=== PATIENT | male | born 1940 | race Caucasian/White ===

== ENCOUNTER 2016-05-29 16:15 | Inpatient (IN) | payer OTHER ==
[2016-05-29 18:14] VITALS: BMI 25.2
--- NOTE | 2016-05-29 20:23 | HP ---
COWS - Scale Resting Pulse: 1= [place] 81-100 Sweatin=Flushed/Facial Moisture Restless Observation: 1= Difficult to Sit Still Pupil Size: 0= Normal to Room Light Bone or Joint Aches: 2= Severe Diffuse Aches Runny Nose/ Eye Tearin= Runny Nose/Eyes GI Upset > 30mins: 1= Stomach Cramp Tremor Observation: 1= Tremor [place], Not Seen Yawning Observation: 2= >3x During Session Anxiety or Irritability: 2=Irritable/Anxious Goose Flesh Skin: 0=Smooth Skin COWS Score: 14 CIWA Score - CIWA Score Nausea/Vomitin-Mild Nausea/No Vomiting Muscle Tremors: 3 Anxiety: 3 Agitation: 2 Paroxysmal Sweats: 3 Orientation: 1-Uncertain about Date Tacttile Disturbances: 1-Very Mild Itch/Numbness Auditory Disturbances: 0-None Visual Disturbances: 0-None Headache: 2-Mild CIWA-Ar Total Score: 16 Admission ROS S - HPI Chief Complaint: WITHDRAWAL SYMPTOMS Allergies/Adverse Reactions: Allergies Allergy/AdvReac Type Severity Reaction Status Date / Time No Known Allergies Allergy Verified 04/21/15 15:08 History of Present Illness: 75 Y.O. MAN WITH AN EXTENSIVE HISTORY OF DRUG AND ALCOHOL DEPENDENCE IS SEEKING DETOX. HE REPORTS HAVING A HISTORY OF 3-4 YEARS OF SOBRIETY. PT. COMPLETED DETOX HERE TWICE IN 2016. Exam Limitations: No Limitations - Ebola screening Have you traveled outside of the country in the last 21 days: No Have you had contact with anyone from an Ebola affected area: No Have you been sick,other than usual withdrawal symptoms: No Do you have a fever: No - Review of Systems Constitutional: Night Sweats, Changes in sleep EENT: reports: Blurred Vision, Ear Pain Respiratory: reports: SOB with Exertion Cardiac: reports: No Symptoms Reported GI: reports: Constipated : reports: Other ( HESISTANCY) Musculoskeletal: reports: Back Pain Integumentary: reports: No Symptoms Reported Neuro: reports: Headache, Numbness Endocrine: reports: No Symptoms Reported Hematology: reports: No Symptoms Reported Psychiatric: reports: Judgement Intact, Anxious Other Systems: Reviewed and Negative Patient History - Patient Medical History Hx Anemia: No Hx Asthma: No Hx Chronic Obstructive Pulmonary Disease (COPD): No Hx Cancer: No Hx Cardiac Disorders: No Hx Congestive Heart Failure: No Hx Hypertension: Yes (NOT TAKING MEDS ) Hx Hypercholesterolemia: No Hx Pacemaker: No HX Cerebrovascular Accident: No Hx Seizures: No Hx Dementia: No Hx Diabetes: No Hx Gastrointestinal Disorders: No Hx Liver Disease: No Hx Genitourinary Disorders: No Hx Sexually Transmitted Disorders: No Hx Renal Disease (ESRD): No Hx Thyroid Disease: No Hx Human Immunodeficiency Virus (HIV): No (negative last 05/28) Hx Hepatitis C: Yes Hx Depression: Yes (insomnia) Hx Suicide Attempt: No (denies) Hx Bipolar Disorder: No Hx Schizophrenia: No - Patient Surgical History Past Surgical History: Yes Hx Neurologic Surgery: No Hx Cataract Extraction: No Hx Cardiac Surgery: No Hx Lung Surgery: No Hx Breast Surgery: No Hx Breast Biopsy: No Hx Abdominal Surgery: No Hx Appendectomy: No Hx Cholecystectomy: Yes (20 years ago elo) Hx Genitourinary Surgery: No Hx Section: No Hx Orthopedic Surgery: No Anesthesia Reaction: No - PPD History Previous Implant?: Yes Documented Results: Negative w/proof Implanted On Prior R Admission?: Yes Date: 04/23/15 Results: 0 mm PPD to be Administered?: Yes - Reproductive History Patient is a Female of Child Bearing Age (11 -55 yrs old): No - Smoking Cessation Smoking history: Current every day smoker Have you smoked in the past 12 months: Yes Aproximately how many cigarettes per day: 5 Cigars Per Day: 0 Hx Chewing Tobacco Use: No Initiated information on smoking cessation: Yes 'Breaking Loose' booklet given: 05/29/16 - Substance & Tx. History Hx Alcohol Use: Yes Hx Substance Use: Yes Substance Use Type: Alcohol, Heroin Hx Substance Use Treatment: Yes (DETOX ) - Substances Abused Heroin Route: Inhalation Frequency: Daily Amount used: 8-9 BAGS Age of first use: 22 Date of Last Use: 05/29/16 Alcohol Route: Oral Frequency: Daily Amount used: 1-2 PINTS OF LIQUOR Age of first use: 22 Date of Last Use: 05/29/16 Family Disease History - Family Disease History Family History: Unremarkable Admission Physical Exam BHS - Vital Signs Vital Signs: Vital Signs - 24 hr 05/29/16 18:09 Temperature 98.8 F Pulse Rate 87 Respiratory 18 Rate Blood Pressure 153/77 - Physical General Appearance: Yes: No Apparent Distress, Nourished, Appropriately Dressed , Sweating, Anxious HEENTM: Yes: Hearing grossly Normal, Normal ENT Inspection, Normocephalic, Normal Voice Respiratory: Yes: Chest Non-Tender, Lungs Clear, Normal Breath Sounds, No Respiratory Distress, No Accessory Muscle Use Neck: Yes: No masses,lesions,Nodules, Trachea in good position Breast: Yes: Breast Exam Deferred Cardiology: Yes: Regular Rhythm, Regular Rate, S1, S2 Abdominal: Yes: Normal Bowel Sounds, Non Tender, Flat, Soft Genitourinary: Yes: Hesitency Back: Yes: Normal Inspection Musculoskeletal: Yes: Back pain Extremities: Yes: Normal Capillary Refill, Normal Inspection, Normal Range of Motion Neurological: Yes: Fully Oriented, Alert, Normal Mood/Affect, Normal Response Integumentary: Yes: Normal Color, Dry, Warm Lymphatic: Yes: Within Normal Limits - Diagnostic (1) Alcohol dependence with uncomplicated withdrawal Current Visit: Yes Status: Chronic (2) Opioid dependence with withdrawal Current Visit: Yes Status: Chronic (3) Nicotine dependence Current Visit: Yes Status: Chronic Qualifiers: Nicotine product type: cigarettes Substance use status: uncomplicated Qualified Code(s): F17.210 - Nicotine dependence, cigarettes, uncomplicated Cleared for Admission [facility] - Detox or Rehab [facility] Level of Care: Medically Managed Detox Regimen/Protocol: Methadone/Librium [facility] Breath Alcohol Content Breath Alcohol Content: 0.118 Urine Drug Screen - Results Urine Drug Screen Results: OPI-Opiates, MTD-Methadone, TCA-Tricyclic Antidepress
[2016-05-29] MEDS ORDERED: MENTHOL/PHENOL 1 EACH UD MM PRN (20:40)
[2016-05-29] MEDS ORDERED: chlordiazePOXIDE HCL 25 MG CAPSULE PO PRN (20:40)
[2016-05-29] MEDS ORDERED: guaiFENesin/D-METHORPHAN HB 10 ML UNIT-DOSE CUPS PO PRN (20:40)
[2016-05-29] MEDS ORDERED: ACETAMINOPHEN 325 MG TABLET (FP) PO PRN (20:40)
[2016-05-29] MEDS ORDERED: MAGNESIUM HYDROX 2400MG/30ML ORAL SUSPENSION 30 ML CUP PO PRN (20:40)
[2016-05-29] MEDS ORDERED: IBUPROFEN 400 MG TABLET (FP) PO PRN (20:40)
[2016-05-29] MEDS ORDERED: MAG HYDROX/AL HYDROX/SIMETH 30 ML UNIT-DOSE CUP PO PRN (20:40)
[2016-05-29] MEDS ORDERED: MAGNESIUM CITRATE 300 ML BOTTLE PO PRN (20:40)
[2016-05-29] MEDS ORDERED: LOPERAMIDE HCL 2 MG CAPSULE PO PRN (20:40)
[2016-05-29] MEDS ORDERED: P-EPHED 60MG/TRIPROLIDI 2.5MG TABLET PO PRN (20:40)
[2016-05-29] MEDS ORDERED: chlordiazePOXIDE HCL 25 MG CAPSULE PO ONE (20:40)
[2016-05-29] MEDS ORDERED: METHADONE HCL 10 MG TABLET (FOR DETOX USE ONLY) PO ONE ×2 (20:40→23:00)
[2016-05-29] MEDS ORDERED: hydrOXYzine PAMOATE 50 MG CAPSULE (FP) PO PRN (20:40)
[2016-05-29] MEDS ORDERED: chlordiazePOXIDE HCL 25 MG CAPSULE PO SCH (23:00)
[2016-05-29 23:40] LABS: URINE APPEARANCE CLEAR; URINE BILIRUBIN NEGATIVE (NEGATIVE); URINE BLOOD NEGATIVE (NEGATIVE); URINE COLOR YELLOW; URINE GLUCOSE (UA) NEGATIVE (NEGATIVE); URINE KETONE NEGATIVE (NEGATIVE); URINE LEUK ESTERASE NEGATIVE (NEGATIVE); URINE NITRITE NEGATIVE (NEGATIVE); URINE PROTEIN NEGATIVE (NEGATIVE); URINE UROBILINOGEN 4.0 E.U/dl E.U./dl (0.2-1.0)
[2016-05-30] MEDS ORDERED: METHADONE HCL 10 MG TABLET (FOR DETOX USE ONLY) PO ONE ×3 (01:14→22:00)
[2016-05-30] MEDS ORDERED: chlordiazePOXIDE HCL 25 MG CAPSULE PO PRN (01:14)
[2016-05-30] MEDS ORDERED: chlordiazePOXIDE HCL 25 MG CAPSULE PO ONE (01:14)
[2016-05-30] MEDS: THIAMINE HCL 100 MG TABLET (FP) PO SCH ×2 (02:36→22:19)
[2016-05-30] MEDS: chlordiazePOXIDE HCL 25 MG CAPSULE PO SCH ×4 (06:01→22:19)
[2016-05-30] MEDS ORDERED: cloNIDine HCL 0.1 MG TABLET PO ONE (07:33)
[2016-05-30] MEDS ORDERED: METHADONE HCL 10 MG TABLET (FOR DETOX USE ONLY) PO SCH (10:00)
[2016-05-30] MEDS: PRENATAL VITAMINS W/ FOLIC ACID TABLET (FP) PO SCH (10:28)
[2016-05-30 10:41] LABS: MCH 30.2 pg (25.7-33.7); MCHC 33.9 g/dl (32.0-35.9); MEAN PLT VOLUME 8.7 fl (7.5-11.1); PLATELET COUNT 186 K/MM3 (134-434); RDW 14.5 % (11.9-15.9)
[2016-05-30 11:01] LABS: ALBUMIN 3.6 g/dl (3.4-5.0); ALK PHOS 70 U/L (45-117); ANION GAP 2 (8-16); BILIRUBIN,TOTAL 1.1 mg/dL (0.2-1.0); CALCIUM 8.4 mg/dL (8.5-10.1); CO2 29 mmol/L (21-32); CREATININE 0.7 mg/dL (0.7-1.3); GLUCOSE,RANDOM 80 mg/dL (74-106); SGOT/AST 31 U/L (15-37); SGPT/ALT 22 U/L (12-78); TOT PROT 6.9 g/dl (6.4-8.2)
--- NOTE | 2016-05-30 11:49 | EKG ---
Test Reason : Blood Pressure : / mmHG Vent. Rate : 078 BPM Atrial Rate : 078 BPM P-R Int : 154 ms QRS Dur : 096 ms QT Int : 382 ms P-R-T Axes : 071 050 062 degrees QTc Int : 435 ms NORMAL SINUS RHYTHM NORMAL ECG NO PREVIOUS ECGS AVAILABLE Confirmed by ASHTYN MELVIN, LIBERTY ([id number]) on 05/30/2016 11:49:19 AM Referred By: Confirmed By:LIBERTY CHAMORRO MD
--- NOTE | 2016-05-30 15:39 | PN ---
[facility] CIWA - CIWA Score Nausea/Vomitin-Mild Nausea/No Vomiting Muscle Tremors: 3 Anxiety: 4-Mod. Anxious/Guarded Agitation: 4-Moderately Restless Paroxysmal Sweats: 3 Orientation: 1-Uncertain about Date Tacttile Disturbances: 1-Very Mild Itch/Numbness Auditory Disturbances: 0-None Visual Disturbances: 0-None Headache: 0-None Present CIWA-Ar Total Score: 17 S COWS - Scale Resting Pulse: 0= [place] 80 or Below Sweatin=Flushed/Facial Moisture Restless Observation: 1= Difficult to Sit Still Pupil Size: 0= Normal to Room Light Bone or Joint Aches: 2= Severe Diffuse Aches Runny Nose/ Eye Tearin= Runny Nose/Eyes GI Upset > 30mins: 2= Nausea/Diarrhea Tremor Observation of Outstretched Hands: 2= Slight Tremor Visible Yawning Observation: 1= 1-2x During Session Anxiety or Irritability: 2=Irritable/Anxious Goose Flesh Skin: 0=Smooth Skin COWS Score: 14 [facility] Progress Note (SOAP) Subjective: ANXIETY,TREMORS,INTERRUPTED SLEEP,RESTLESS.SWEATING. Objective: 05/30/16 15:38 Vital Signs - 8 hr 05/30/16 05/30/16 05/30/16 07:40 09:52 14:20 Temperature 96.0 F L 96.7 F L Pulse Rate 71 73 71 Respiratory 18 18 Rate Blood Pressure 161/86 161/95 151/90 Laboratory Tests 05/29/16 05/30/16 05/30/16 22:27 07:00 07:00 WBC 6.0 RBC 4.81 Hgb 14.5 Hct 42.9 MCV 89.0 MCHC 33.9 RDW 14.5 Plt Count 186 MPV 8.7 Sodium 135 L Potassium 3.6 Chloride 104 Carbon Dioxide 29 Anion Gap 2 L BUN 9 D Creatinine 0.7 D Creat Clearance w eGFR > 60 Random Glucose 80 Calcium 8.4 L Total Bilirubin 1.1 H AST 31 D ALT 22 Alkaline Phosphatase 70 Total Protein 6.9 Albumin 3.6 Urine Color Yellow Urine Appearance Clear Urine pH 6.0 Ur Specific [place] 1.015 Urine Protein Negative Urine Glucose (UA) Negative Urine Ketones Negative Urine Blood Negative Urine Nitrite Negative Urine Bilirubin Negative Urine Urobilinogen 4.0 e.u/dl Ur Leukocyte Esterase Negative RPR Titer 05/30/16 07:00 WBC RBC Hgb Hct MCV MCHC RDW Plt Count MPV Sodium Potassium Chloride Carbon Dioxide Anion Gap BUN Creatinine Creat Clearance w eGFR Random Glucose Calcium Total Bilirubin AST ALT Alkaline Phosphatase Total Protein Albumin Urine Color Urine Appearance Urine pH Ur Specific [place] Urine Protein Urine Glucose (UA) Urine Ketones Urine Blood Urine Nitrite Urine Bilirubin Urine Urobilinogen Ur Leukocyte Esterase RPR Titer Nonreactive LABS NOTED Assessment: 05/30/16 15:39 WITHDRAWAL SX. Plan: CONTINUE DETOX
[2016-05-30] MEDS: diphenhydrAMINE HCL 50 MG CAPSULE PO PRN (22:20)
[2016-05-30] MEDS ORDERED: chlordiazePOXIDE HCL 25 MG CAPSULE PO SCH (23:00)
[2016-05-31] MEDS: diphenhydrAMINE HCL 50 MG CAPSULE PO PRN ×2 (01:02→22:19)
[2016-05-31] MEDS: chlordiazePOXIDE HCL 25 MG CAPSULE PO SCH ×4 (05:44→22:19)
--- NOTE | 2016-05-31 09:43 | CONSULT ---
[facility] Psychiatric Consult - Data Date of interview: 05/30/16 (janee was seen on 05/30, documented 05/31) Admission source: [facility] Identifying data: The patient is a 75 year old single P-R male who is domiciled residing alone in [facility] and supported by [facility]. Substance Abuse History: Patient reports drinking vodka 1-2 pints daily,using heroin 5-8 bags "depends", smoking cigarettes 3-4 a day. Medical History: HTN not on meds, cholecystoectomy 20 ear ago Psychiatric History: Patient denies history of psychiatric treatment, but as per medical record on his previous detox tretment with seroquel for indomnia, at present time patient reports he does not want any medications "just continue with detox. meds". Physical/Sexual Abuse/Trauma History: Denies history of abuse Mental Status Exam - Mental Status Exam Alert and Oriented to: Time, Place, Person Cognitive Function: Good Patient Appearance: Well Groomed Mood: Hopeful Affect: Appropriate, Mood Congruent Patient Behavior: Appropriate, Cooperative Speech Pattern: Appropriate Voice Loudness: Normal Thought Process: Intact, Goal Oriented Thought Disorder: Not Present Hallucinations: Denies Suicidal Ideation: Denies Homicidal Ideation: Denies Insight/Judgement: Fair Sleep: Fair Appetite: Fair Muscle strength/Tone: Normal Gait/Station: Normal Psychiatric Findings - Problem List ([place] 1, 2,3) (1) Alcohol dependence with uncomplicated withdrawal Current Visit: Yes Status: Chronic (2) Nicotine dependence Current Visit: Yes Status: Chronic Qualifiers: Nicotine product type: cigarettes Substance use status: uncomplicated Qualified Code(s): F17.210 - Nicotine dependence, cigarettes, uncomplicated (3) Opioid dependence with withdrawal Current Visit: Yes Status: Chronic - Initial Treatment Plan Initial Treatment Plan: will continue with detox. protocol.
[2016-05-31] MEDS ORDERED: METHADONE HCL 5 MG TABLET (FOR DETOX USE ONLY) PO SCH ×2 (10:00)
[2016-05-31] MEDS: PRENATAL VITAMINS W/ FOLIC ACID TABLET (FP) PO SCH (10:20)
--- NOTE | 2016-05-31 20:39 | PN ---
[id number]d 3 Anxiety: 4-Mod. Anxious/Guarded Agitation: 3 Paroxysmal Sweats: 3 Orientation: 0-Oriented Tacttile Disturbances: 0-None Auditory Disturbances: 0-None Visual Disturbances: 0-None Headache: 0-None Present CIWA-Ar Total Score: 14 [facility] COWS - Scale Resting Pulse: 0= [place] 80 or Below Sweatin=Flushed/Facial Moisture Restless Observation: 1= Difficult to Sit Still Pupil Size: 0= Normal to Room Light Bone or Joint Aches: 1= Mild Discomfort Runny Nose/ Eye Tearin= Runny Nose/Eyes GI Upset > 30mins: 2= Nausea/Diarrhea Tremor Observation of Outstretched Hands: 2= Slight Tremor Visible Yawning Observation: 1= 1-2x During Session Anxiety or Irritability: 2=Irritable/Anxious Goose Flesh Skin: 0=Smooth Skin COWS Score: 13 [facility] Progress Note (SOAP) Subjective: ANXIETY,TREMORS,SWEATING,INTERRUPTED SLEEP,RESTLESS,MUSCLE ACHES/SPASM. Objective: 05/31/16 20:37 Laboratory Last Values WBC 6.0 K/mm3 (4.0-10.0) 05/30/16 07:00 RBC 4.81 M/mm3 (4.00-5.60) 05/30/16 07:00 Hgb 14.5 GM/dL (11.7-16.9) 05/30/16 07:00 Hct 42.9 % (35.4-49) 05/30/16 07:00 MCV 89.0 fl (80-96) 05/30/16 07:00 MCHC 33.9 g/dl (32.0-35.9) 05/30/16 07:00 RDW 14.5 % (11.9-15.9) 05/30/16 07:00 Plt Count 186 K/MM3 (134-434) 05/30/16 07:00 MPV 8.7 fl (7.5-11.1) 05/30/16 07:00 Sodium 135 mmol/L (136-145) L 05/30/16 07:00 Potassium 3.6 mmol/L (3.5-5.1) 05/30/16 07:00 Chloride 104 mmol/L (98-107) 05/30/16 07:00 Carbon Dioxide 29 mmol/L (21-32) 05/30/16 07:00 Anion Gap 2 (8-16) L 05/30/16 07:00 BUN 9 mg/dL (7-18) D 05/30/16 07:00 Creatinine 0.7 mg/dL (0.7-1.3) D 05/30/16 07:00 Creat Clearance w eGFR > 60 (>60) 05/30/16 07:00 Random Glucose 80 mg/dL (74-106) 05/30/16 07:00 Calcium 8.4 mg/dL (8.5-10.1) L 05/30/16 07:00 Total Bilirubin 1.1 mg/dL (0.2-1.0) H 05/30/16 07:00 AST 31 U/L (15-37) D 05/30/16 07:00 ALT 22 U/L (12-78) 05/30/16 07:00 Alkaline Phosphatase 70 U/L (45-117) 05/30/16 07:00 Total Protein 6.9 g/dl (6.4-8.2) 05/30/16 07:00 Albumin 3.6 g/dl (3.4-5.0) 05/30/16 07:00 Urine Color Yellow 05/29/16 22:27 Urine Appearance Clear 05/29/16 22:27 Urine pH 6.0 (5.0-8.0) 05/29/16 22:27 Ur Specific [place] 1.015 (1.001-1.035) 05/29/16 22:27 Urine Protein Negative (NEGATIVE) 05/29/16 22: Urine Glucose (UA) Negative (NEGATIVE) 05/29/16 22:27 Urine Ketones Negative (NEGATIVE) 05/29/16 22:27 Urine Blood Negative (NEGATIVE) 05/29/16 22: Urine Nitrite Negative (NEGATIVE) 05/29/16 22: Urine Bilirubin Negative (NEGATIVE) 05/29/16 22: Urine Urobilinogen 4.0 e.u/dl E.U./dl (0.2-1.0) 05/29/16 22:27 Ur Leukocyte Esterase Negative (NEGATIVE) 05/29/16 22:27 RPR Titer Nonreactive (NONREACTIVE) 05/30/16 07:00 Vital Signs - 8 hr 05/31/16 05/31/16 14:20 17:59 Temperature 97.4 F L 97.1 F L Pulse Rate 78 79 Respiratory 20 18 Rate Blood Pressure 125/71 121/79 Assessment: 05/31/16 20:38 WITHDRAWAL SX. Plan: CONTINUE DETOX
[2016-05-31] MEDS: THIAMINE HCL 100 MG TABLET (FP) PO SCH (22:19)
[2016-05-31] MEDS ORDERED: chlordiazePOXIDE 5 MG CAPSULE PO SCH (23:00)
[2016-06-01] MEDS ORDERED: chlordiazePOXIDE 5 MG CAPSULE PO SCH (05:00)
[2016-06-01 06:05] VITALS: BP 133/79; PULSE 71; TEMP 95.9
[2016-06-01] MEDS ORDERED: METHADONE HCL 5 MG TABLET (FOR DETOX USE ONLY) PO SCH (10:00)
--- NOTE | 2016-06-01 15:45 | PN ---
[facility] Progress Note Note: Patient does not want to complete detox, discussed risks of not compelting detox , will sign out AMA. discussed planw ith nursing staff who are aware. Vital Signs - 24 hr 05/31/16 05/31/16 06/01/16 17:59 21:50 00:28 Temperature 97.1 F L 96.2 F L Pulse Rate 79 81 Respiratory 18 18 18 Rate Blood Pressure 121/79 142/78 06/01/16 06/01/16 03:28 06:05 Temperature 95.9 F L Pulse Rate 71 Respiratory 18 18 Rate Blood Pressure 133/79 Laboratory Tests 05/29/16 05/30/16 05/30/16 22:27 07:00 07:00 WBC 6.0 RBC 4.81 Hgb 14.5 Hct 42.9 MCV 89.0 MCHC 33.9 RDW 14.5 Plt Count 186 MPV 8.7 Sodium 135 L Potassium 3.6 Chloride 104 Carbon Dioxide 29 Anion Gap 2 L BUN 9 D Creatinine 0.7 D Creat Clearance w eGFR > 60 Random Glucose 80 Calcium 8.4 L Total Bilirubin 1.1 H AST 31 D ALT 22 Alkaline Phosphatase 70 Total Protein 6.9 Albumin 3.6 Urine Color Yellow Urine Appearance Clear Urine pH 6.0 Ur Specific [place] 1.015 Urine Protein Negative Urine Glucose (UA) Negative Urine Ketones Negative Urine Blood Negative Urine Nitrite Negative Urine Bilirubin Negative Urine Urobilinogen 4.0 e.u/dl Ur Leukocyte Esterase Negative RPR Titer 05/30/16 07:00 WBC RBC Hgb Hct MCV MCHC RDW Plt Count MPV Sodium Potassium Chloride Carbon Dioxide Anion Gap BUN Creatinine Creat Clearance w eGFR Random Glucose Calcium Total Bilirubin AST ALT Alkaline Phosphatase Total Protein Albumin Urine Color Urine Appearance Urine pH Ur Specific [place] Urine Protein Urine Glucose (UA) Urine Ketones Urine Blood Urine Nitrite Urine Bilirubin Urine Urobilinogen Ur Leukocyte Esterase RPR Titer Nonreactive
--- NOTE | 2016-06-01 15:47 | DS ---
[facility] Detox Discharge Summary Admission Date: 05/29/16 Discharge Date: 06/01/16 - History Present History: Alcohol Dependence, Opioid Dependence Pertinent Past History: nicotine dependence, anxiety, depression, insomnia - Physical Exam Results Vital Signs: Vital Signs Temperature 95.9 F L 06/01/16 06:05 Pulse Rate 71 06/01/16 06:05 Respiratory Rate 18 06/01/16 06:05 Blood Pressure 133/79 06/01/16 06:05 O2 Sat by Pulse Oximetry (%) Pertinent Admission Physical Exam Findings: withdrawal sx - Treatment Hospital Course: Detox Protocol Followed - Medication Discharge Medications: Ambulatory Orders Quetiapine Fumarate [Seroquel -] 50 mg PO HS #30 tablet 06/15/15 - Diagnosis (1) Alcohol dependence with uncomplicated withdrawal Status: Chronic (2) Nicotine dependence Status: Chronic Qualifiers: Nicotine product type: cigarettes Substance use status: uncomplicated Qualified Code(s): F17.210 - Nicotine dependence, cigarettes, uncomplicated (3) Opioid dependence with withdrawal Status: Chronic (4) Drug-induced mood disorder Status: Acute (5) Insomnia Status: Acute Qualifiers: Insomnia type: alcohol-induced Qualified Code(s): F10.982 - Alcohol use, unspecified with alcohol-induced sleep disorder - AMA Did Patient Leave Against Medical Advice: Yes
[2016-06-01] MEDS ORDERED: chlordiazePOXIDE HCL 10 MG CAPSULE PO SCH (23:00)
[2016-06-02] MEDS ORDERED: chlordiazePOXIDE HCL 10 MG CAPSULE PO SCH (05:00)
[2016-06-02] MEDS ORDERED: METHADONE HCL 10 MG TABLET (FOR DETOX USE ONLY) PO SCH (10:00)
[2016-06-03] MEDS ORDERED: METHADONE HCL 5 MG TABLET (FOR DETOX USE ONLY) PO SCH (06:00)
[2016-06-03] MEDS ORDERED: METHADONE HCL 10 MG TABLET (FOR DETOX USE ONLY) PO SCH (10:00)
[2016-06-04] MEDS ORDERED: METHADONE HCL 10 MG TABLET (FOR DETOX USE ONLY) PO SCH (06:00)
== END 2016-06-01 08:57 | disposition left against medical advice (07) | DRG 894 ==
LOC: YASAS 16:15 → Y3N 21:36
PROVIDERS: ADMIT Internal Medicine; ATTEND Internal Medicine
PROC: HZ2ZZZZ Detoxification Services for Substance Abuse Treatment (ICD-10-PCS; principal; 2016-05-29)
DX: F11.23 Opioid dependence with withdrawal (principal); F10.230 Alcohol dependence with withdrawal, uncomplicated; F10.282 Alcohol dependence with alcohol-induced sleep disorder; F17.210 Nicotine dependence, cigarettes, uncomplicated; F19.24 Other psychoactive substance dependence with psychoactive substance-induced mood disorder
CPT/HCPCS: 36415; 80053; 81003; 85027; 86593; 93005; 93010

== ENCOUNTER 2016-07-06 11:56 | Inpatient (IN) | payer OTHER ==
[2016-07-06 14:20] VITALS: BMI 24.7
--- NOTE | 2016-07-06 18:17 | HP ---
COWS - Scale Resting Pulse: 1= [place] 81-100 Sweatin= Chills/Flushing Restless Observation: 1= Difficult to Sit Still Pupil Size: 1= Pupils >than Normal Bone or Joint Aches: 2= Severe Diffuse Aches Runny Nose/ Eye Tearin= Nasal Congestion GI Upset > 30mins: 2= Nausea/Diarrhea Tremor Observation: 1= Tremor [place], Not Seen Yawning Observation: 1= 1-2x During Session Anxiety or Irritability: 2=Irritable/Anxious Goose Flesh Skin: 3=[place]il[place] COWS Score: 16 CIWA Score - CIWA Score Nausea/Vomitin-Mild Nausea/No Vomiting Muscle Tremors: 4-Moderate,w/Arms Extend Anxiety: 4-Mod. Anxious/Guarded Agitation: 4-Moderately Restless Paroxysmal Sweats: 1-Minimal [place]ms Moist Orientation: 3-Disoriented Date>2 days Tacttile Disturbances: 0-None Auditory Disturbances: 0-None Visual Disturbances: 0-None Headache: 3-Moderate CIWA-Ar Total Score: 20 Admission ROS S - HPI Chief Complaint: WITHDRAWAL SX Allergies/Adverse Reactions: Allergies Allergy/AdvReac Type Severity Reaction Status Date / Time No Known Allergies Allergy Verified 07/06/16 17:56 History of Present Illness: 75 YEARS OLD MALE WITH LONG HISTORY OF ALCOHOL OPIATE NICOTINE DEPENDENCE, HAS HYPERTENSION DENIES MENTAL ILLNESS IS ADMITTED TO DETOX Exam Limitations: No Limitations - Ebola screening Have you traveled outside of the country in the last 21 days: No Have you had contact with anyone from an Ebola affected area: No Have you been sick,other than usual withdrawal symptoms: No Do you have a fever: No - Review of Systems Constitutional: Chills, Changes in sleep, Weight Stable EENT: reports: Blurred Vision (NEEDED EYE GLASSES) Respiratory: reports: No Symptoms reported Cardiac: reports: No Symptoms Reported GI: reports: Nausea, Poor Fluid Intake, Abdominal cramping : reports: No Symptoms Reported Musculoskeletal: reports: Back Pain, Joint Pain, Muscle Pain, Neck Pain Integumentary: reports: No Symptoms Reported Neuro: reports: Tremors Endocrine: reports: No Symptoms Reported Hematology: reports: No Symptoms Reported Psychiatric: reports: Judgement Intact, Mood/Affect Appropiate Other Systems: Reviewed and Negative Patient History - Patient Medical History Hx Anemia: No Hx Asthma: No Hx Chronic Obstructive Pulmonary Disease (COPD): No Hx Cancer: No Hx Cardiac Disorders: No Hx Congestive Heart Failure: No Hx Hypertension: No Hx Hypercholesterolemia: No Hx Pacemaker: No HX Cerebrovascular Accident: No Hx Seizures: No Hx Dementia: No Hx Diabetes: No Hx Gastrointestinal Disorders: No Hx Liver Disease: No Hx Genitourinary Disorders: No Hx Sexually Transmitted Disorders: No Hx Renal Disease (ESRD): No Hx Thyroid Disease: No Hx Human Immunodeficiency Virus (HIV): No (negative last 05/28) Hx Hepatitis C: Yes Hx Depression: No Hx Suicide Attempt: No Hx Bipolar Disorder: No Hx Schizophrenia: No - Patient Surgical History Past Surgical History: Yes Hx Neurologic Surgery: No Hx Cataract Extraction: No Hx Cardiac Surgery: No Hx Lung Surgery: No Hx Breast Surgery: No Hx Breast Biopsy: No Hx Abdominal Surgery: No Hx Appendectomy: No Hx Cholecystectomy: Yes (20 years ago elo) Hx Genitourinary Surgery: No Hx Orthopedic Surgery: No Anesthesia Reaction: No - PPD History Previous Implant?: Yes Documented Results: Negative w/proof Implanted On Prior [facility] Admission?: Yes Date: 06/01/16 Results: 0 mm PPD to be Administered?: No - Smoking Cessation Smoking history: Current every day smoker Have you smoked in the past 12 months: Yes Aproximately how many cigarettes per day: 5 Cigars Per Day: 0 Hx Chewing Tobacco Use: No Initiated information on smoking cessation: Yes 'Breaking Loose' booklet given: 07/06/16 - Substance & Tx. History Hx Alcohol Use: Yes Hx Substance Use: Yes Substance Use Type: Alcohol, Opiates Hx Substance Use Treatment: Yes - Substances Abused Alcohol Route: Oral Frequency: Daily Amount used: 2 1/2 PINTS [place] Age of first use: 22 Date of Last Use: 07/06/16 Heroin Route: Inhalation Frequency: Daily Amount used: 7 bags Age of first use: 22 Date of Last Use: 07/06/16 Family Disease History - Family Disease History Family Disease History: Other: Father (NO CONTACT), Mother (96 YEARS OLD) Admission Physical Exam BHS - Vital Signs Vital Signs: Vital Signs - 24 hr 07/06/16 14:18 Temperature 98.9 F Pulse Rate 91 H Respiratory 20 Rate Blood Pressure 158/84 - Physical General Appearance: Yes: Appropriately Dressed, Moderate Distress, Alcohol on Breath, Tremorous, Irritable, Sweating, Anxious HEENTM: Yes: Hearing grossly Normal, Normal ENT Inspection, Normocephalic, Normal Voice Respiratory: Yes: Chest Non-Tender, Lungs Clear, Normal Breath Sounds, No Respiratory Distress, No Accessory Muscle Use Neck: Yes: Supple, Trachea in good position Breast: Yes: Breasts Symetrical Cardiology: Yes: Regular Rhythm, Regular Rate, S1, S2 Abdominal: Yes: Non Tender, Soft Genitourinary: Yes: Within Normal Limits Back: Yes: Normal Inspection Musculoskeletal: Yes: full range of Motion, Gait Steady, Back pain Extremities: Yes: Normal Inspection, Normal Range of Motion, Non-Tender, Tremors Neurological: Yes: Alert, Motor Strength 5/5, Normal Mood/Affect, Normal Response Integumentary: Yes: Warm, [place] Lymphatic: Yes: Within Normal Limits - Diagnostic (1) Alcohol dependence with uncomplicated withdrawal Current Visit: Yes Status: Acute (2) Nicotine dependence Current Visit: Yes Status: Acute Qualifiers: Nicotine product type: cigarettes Substance use status: in withdrawal Qualified Code(s): F17.213 - Nicotine dependence, cigarettes, with withdrawal (3) Opioid dependence with withdrawal Current Visit: Yes Status: Acute (4) Hepatitis C antibody test positive Current Visit: Yes Status: Chronic Cleared for Admission [facility] - Detox or Rehab [facility] Level of Care: Medically Managed Detox Regimen/Protocol: Methadone/Librium [facility] Breath Alcohol Content Breath Alcohol Content: 0.134 Urine Drug Screen - Results Drug Screen Negative: No Urine Drug Screen Results: OPI-Opiates, BZO-Benzodiazepines, MTD-Methadone, TCA- Tricyclic Antidepress, OXY-Oxycodone
[2016-07-06] MEDS ORDERED: MAGNESIUM CITRATE 300 ML BOTTLE PO PRN (18:24)
[2016-07-06] MEDS ORDERED: guaiFENesin/D-METHORPHAN HB 10 ML UNIT-DOSE CUPS PO PRN (18:24)
[2016-07-06] MEDS ORDERED: MENTHOL/PHENOL 1 EACH UD MM PRN (18:24)
[2016-07-06] MEDS ORDERED: LOPERAMIDE HCL 2 MG CAPSULE PO PRN (18:24)
[2016-07-06] MEDS ORDERED: IBUPROFEN 400 MG TABLET (FP) PO PRN (18:24)
[2016-07-06] MEDS ORDERED: NICOTINE POLACRILEX 2 MG GUM BC PRN (18:24)
[2016-07-06] MEDS ORDERED: P-EPHED 60MG/TRIPROLIDI 2.5MG TABLET PO PRN (18:24)
[2016-07-06] MEDS ORDERED: MAGNESIUM HYDROX 2400MG/30ML ORAL SUSPENSION 30 ML CUP PO PRN (18:24)
[2016-07-06] MEDS ORDERED: ACETAMINOPHEN 325 MG TABLET (FP) PO PRN (18:24)
[2016-07-06] MEDS ORDERED: METHADONE HCL 10 MG TABLET (FOR DETOX USE ONLY) PO ONE ×2 (18:24→23:00)
[2016-07-06] MEDS ORDERED: MAG HYDROX/AL HYDROX/SIMETH 30 ML UNIT-DOSE CUP PO PRN (18:24)
[2016-07-06] MEDS ORDERED: chlordiazePOXIDE HCL 25 MG CAPSULE PO PRN (18:24)
[2016-07-06] MEDS: chlordiazePOXIDE HCL 25 MG CAPSULE PO SCH (22:11)
[2016-07-06] MEDS: diphenhydrAMINE HCL 50 MG CAPSULE PO PRN (22:11)
[2016-07-06] MEDS: cloNIDine HCL 0.1 MG TABLET PO SCH (22:11)
[2016-07-06] MEDS: THIAMINE HCL 100 MG TABLET (FP) PO SCH (22:11)
[2016-07-06 23:35] LABS: URINE APPEARANCE CLEAR; URINE BILIRUBIN NEGATIVE (NEGATIVE); URINE BLOOD NEGATIVE (NEGATIVE); URINE COLOR YELLOW; URINE GLUCOSE (UA) NEGATIVE (NEGATIVE); URINE KETONE TRACE (NEGATIVE); URINE LEUK ESTERASE NEGATIVE (NEGATIVE); URINE NITRITE NEGATIVE (NEGATIVE); URINE PROTEIN NEGATIVE (NEGATIVE); URINE UROBILINOGEN NEGATIVE E.U./dl (0.2-1.0)
[2016-07-07] MEDS: chlordiazePOXIDE HCL 25 MG CAPSULE PO SCH ×4 (05:53→22:09)
[2016-07-07] MEDS ORDERED: METHADONE HCL 10 MG TABLET (FOR DETOX USE ONLY) PO SCH (10:00)
[2016-07-07] MEDS: PRENATAL VITAMINS W/ FOLIC ACID TABLET (FP) PO SCH (10:06)
[2016-07-07] MEDS: NICOTINE 14 MG/24 HOURS TOPICAL PATCH TD SCH (10:06)
[2016-07-07] MEDS: cloNIDine HCL 0.1 MG TABLET PO SCH ×2 (10:06→22:09)
[2016-07-07 10:13] LABS: MCH 30.1 pg (25.7-33.7); MCHC 32.8 g/dl (32.0-35.9); MEAN CELL VOLUME 91.9 fl (80-96); MEAN PLT VOLUME 9.3 fl (7.5-11.1); PLATELET COUNT 237 K/MM3 (134-434); RDW 15.4 % (11.9-15.9); WHITE BLOOD COUNT 7.5 K/mm3 (4.0-10.0)
[2016-07-07 10:17] LABS: ALBUMIN 3.8 g/dl (3.4-5.0); ANION GAP 13 (8-16); CALCIUM 8.5 mg/dL (8.5-10.1); CO2 25 mmol/L (21-32); GLUCOSE,RANDOM 111 mg/dL (74-106); SGPT/ALT 54 U/L (12-78)
[2016-07-07 10:20] LABS: ALK PHOS 136 U/L (45-117); BILIRUBIN,TOTAL 0.7 mg/dL (0.2-1.0); CREATININE 0.9 mg/dL (0.7-1.3); SGOT/AST 49 U/L (15-37); TOT PROT 7.6 g/dl (6.4-8.2)
--- NOTE | 2016-07-07 10:59 | PN ---
[facility] CIWA - CIWA Score Nausea/Vomitin-Mild Nausea/No Vomiting Muscle Tremors: 3 Anxiety: 3 Agitation: 2 Paroxysmal Sweats: No Perspiration Orientation: 0-Oriented Tacttile Disturbances: 1-Very Mild Itch/Numbness Auditory Disturbances: 0-None Visual Disturbances: 0-None Headache: 3-Moderate CIWA-Ar Total Score: 13 BHS COWS - Scale Resting Pulse: 0= ME 80 or Below Sweatin= No chills or Flushing Restless Observation: 1= Difficult to Sit Still Pupil Size: 1= Pupils >than Normal Bone or Joint Aches: 2= Severe Diffuse Aches Runny Nose/ Eye Tearin= Runny Nose/Eyes GI Upset > 30mins: 1= Stomach Cramp Tremor Observation of Outstretched Hands: 2= Slight Tremor Visible Yawning Observation: 0= None Anxiety or Irritability: 2=Irritable/Anxious Goose Flesh Skin: 0=Smooth Skin COWS Score: 11 S Progress Note (SOAP) Subjective: Anxious, Tremors, interrupted sleep, diffuse body aches Objective: Vital Signs Temperature 95.8 F L 07/07/16 09:46 Pulse Rate 73 07/07/16 09:46 Respiratory Rate 18 07/07/16 09:46 Blood Pressure 150/87 07/07/16 09:46 O2 Sat by Pulse Oximetry (%) Laboratory Last Values WBC 7.5 K/mm3 (4.0-10.0) 07/07/16 06:20 RBC 4.76 M/mm3 (4.00-5.60) 07/07/16 06:20 Hgb 14.3 GM/dL (11.7-16.9) 07/07/16 06:20 Hct 43.8 % (35.4-49) 07/07/16 06:20 MCV 91.9 fl (80-96) 07/07/16 06:20 MCHC 32.8 g/dl (32.0-35.9) 07/07/16 06:20 RDW 15.4 % (11.9-15.9) 07/07/16 06:20 Plt Count 237 K/MM3 (134-434) D 07/07/16 06:20 MPV 9.3 fl (7.5-11.1) 07/07/16 06:20 Sodium 144 mmol/L (136-145) 07/07/16 06:20 Potassium 3.7 mmol/L (3.5-5.1) 07/07/16 06:20 Chloride 106 mmol/L (98-107) 07/07/16 06:20 Carbon Dioxide 25 mmol/L (21-32) 07/07/16 06:20 Anion Gap 13 (8-16) 07/07/16 06:20 BUN 14 mg/dL (7-18) D 07/07/16 06:20 Creatinine 0.9 mg/dL (0.7-1.3) D 07/07/16 06:20 Creat Clearance w eGFR > 60 (>60) 07/07/16 06:20 Random Glucose 111 mg/dL (74-106) H D 07/07/16 06:20 Calcium 8.5 mg/dL (8.5-10.1) 07/07/16 06:20 Total Bilirubin 0.7 mg/dL (0.2-1.0) D 07/07/16 06:20 AST 49 U/L (15-37) H D 07/07/16 06:20 ALT 54 U/L (12-78) D 07/07/16 06:20 Alkaline Phosphatase 136 U/L (45-117) H D 07/07/16 06:20 Total Protein 7.6 g/dl (6.4-8.2) 07/07/16 06:20 Albumin 3.8 g/dl (3.4-5.0) 07/07/16 06:20 Urine Color Yellow 07/06/16 20:00 Urine Appearance Clear 07/06/16 20:00 Urine pH 6.0 (5.0-8.0) 07/06/16 20:00 Ur Specific [place] 1.025 (1.001-1.035) 07/06/16 20:00 Urine Protein Negative (NEGATIVE) 07/06/16 20:00 Urine Glucose (UA) Negative (NEGATIVE) 07/06/16 20:00 Urine Ketones Trace (NEGATIVE) H 07/06/16 20:00 Urine Blood Negative (NEGATIVE) 07/06/16 20:00 Urine Nitrite Negative (NEGATIVE) 07/06/16 20:00 Urine Bilirubin Negative (NEGATIVE) 07/06/16 20:00 Urine Urobilinogen Negative E.U./dl (0.2-1.0) 07/06/16 20:00 Ur Leukocyte Esterase Negative (NEGATIVE) 07/06/16 20:00 labs noted Assessment: Withdrawal Symptoms Plan: Continue Detox
--- NOTE | 2016-07-07 16:36 | CONSULT ---
[facility] Psychiatric Consult - Data Date of interview: 07/07/16 Admission source: [facility] Identifying data: Readmission to [facility] for this 75 y/o male seeking detox treatment on for heroin and alcohol dependence.Patient is ,a father of seven,domiciled and supported on SSI benefits. Substance Abuse History: - Smoking Cessation. Smoking history: Current every day smoker. Have you smoked in the past 12 months: Yes. Aproximately how many cigarettes per day: 5. Cigars Per Day: 0. Hx Chewing Tobacco Use: No. Initiated information on smoking cessation: Yes. 'Breaking Loose' booklet given : 07/06/16. - Substance & Tx. History. Hx Alcohol Use: Yes. Hx Substance Use : Yes. Substance Use Type: Alcohol, Opiates. Hx Substance Use Treatment: Yes. - Substances Abused. Alcohol. Route: Oral. Frequency: Daily. Amount used: 2 1/2 PINTS moscato. Age of first use: 22. Date of Last Use: 07/06/16. Heroin. Route: Inhalation. Frequency: Daily. Amount used: 7 bags. Age of first use: 22. Date of Last Use: 07/06/16. Patient confirms this pattern of substance use in this interview. Medical History: Questionable history of hypertension. Psychiatric History: Patient denies. Physical/Sexual Abuse/Trauma History: Patient denies. Additional Comment: Urine Drug Screen Results: OPI-Opiates, BZO-Benzodiazepines , MTD-Methadone, TCA-Tricyclic Antidepressant, OXY-Oxycodone.Noted. Mental Status Exam - Mental Status Exam Alert and Oriented to: Time, Place, Person Cognitive Function: Good Patient Appearance: Well Groomed (small habitus and short stature) Mood: Hopeful, Euthymic Affect: Appropriate, Normal Range Patient Behavior: Fatigued, Appropriate, Cooperative Speech Pattern: Clear Voice Loudness: Normal Thought Process: Goal Oriented Thought Disorder: Not Present Hallucinations: Denies Suicidal Ideation: Denies Homicidal Ideation: Denies Insight/Judgement: Poor Sleep: Poorly, Difficulty falling asleep Appetite: Good Muscle strength/Tone: Normal Gait/Station: Normal Psychiatric Findings - Problem List ([place] 1, 2,3) (1) Alcohol dependence with uncomplicated withdrawal Current Visit: Yes Status: Acute (2) Opioid dependence with withdrawal Current Visit: Yes Status: Acute (3) Nicotine dependence Current Visit: Yes Status: Acute Qualifiers: Nicotine product type: cigarettes Substance use status: in withdrawal Qualified Code(s): F17.213 - Nicotine dependence, cigarettes, with withdrawal (4) Drug-induced mood disorder Current Visit: Yes Status: Acute (5) Hepatitis C antibody test positive Current Visit: Yes Status: Chronic (6) Insomnia Current Visit: Yes Status: Acute Qualifiers: Insomnia type: alcohol-induced Qualified Code(s): F10.982 - Alcohol use, unspecified with alcohol-induced sleep disorder - Initial Treatment Plan Initial Treatment Plan: Psychoeducation.Detoxification.Insomnia is addressed with benadryl 50 mg po hs prn.Side effects/benefits discussed with the patient.He agrees with this plan.Observation.
--- NOTE | 2016-07-07 21:05 | EKG ---
Test Reason : Blood Pressure : / mmHG Vent. Rate : 080 BPM Atrial Rate : 080 BPM P-R Int : 148 ms QRS Dur : 098 ms QT Int : 378 ms P-R-T Axes : 065 024 054 degrees QTc Int : 435 ms NORMAL SINUS RHYTHM NORMAL ECG WHEN COMPARED WITH ECG OF 30-MAY-2016 02:36, NO SIGNIFICANT CHANGE WAS FOUND Confirmed by BHARGAV SAVAGE MD ([id number]) on 07/07/2016 9:05:05 PM Referred By: Confirmed By:BHARGAV SAVAGE MD
[2016-07-07] MEDS: THIAMINE HCL 100 MG TABLET (FP) PO SCH (22:09)
[2016-07-07] MEDS: CYCLOBENZAPRINE HCL 10 MG TABLET (FP) PO PRN (22:10)
[2016-07-07] MEDS: diphenhydrAMINE HCL 50 MG CAPSULE PO PRN (22:10)
[2016-07-08] MEDS: chlordiazePOXIDE HCL 25 MG CAPSULE PO SCH ×3 (06:10→17:25)
[2016-07-08] MEDS: cloNIDine HCL 0.1 MG TABLET PO SCH ×2 (10:02→22:10)
[2016-07-08] MEDS: PRENATAL VITAMINS W/ FOLIC ACID TABLET (FP) PO SCH (10:02)
[2016-07-08] MEDS: NICOTINE 14 MG/24 HOURS TOPICAL PATCH TD SCH (10:02)
[2016-07-08] MEDS: METHADONE HCL 5 MG TABLET (FOR DETOX USE ONLY) PO SCH (10:02)
--- NOTE | 2016-07-08 14:59 | PN ---
[facility] CIWA - CIWA Score Nausea/Vomitin-Mild Nausea/No Vomiting Muscle Tremors: 2 Anxiety: 4-Mod. Anxious/Guarded Agitation: 4-Moderately Restless Paroxysmal Sweats: No Perspiration Orientation: 0-Oriented Tacttile Disturbances: 1-Very Mild Itch/Numbness Auditory Disturbances: 0-None Visual Disturbances: 0-None Headache: 2-Mild CIWA-Ar Total Score: 14 S COWS - Scale Resting Pulse: 0= IN 80 or Below Sweatin= Chills/Flushing Restless Observation: 3= Extraneous Movement Pupil Size: 0= Normal to Room Light Bone or Joint Aches: 2= Severe Diffuse Aches Runny Nose/ Eye Tearin= Runny Nose/Eyes GI Upset > 30mins: 2= Nausea/Diarrhea Tremor Observation of Outstretched Hands: 2= Slight Tremor Visible Yawning Observation: 0= None Anxiety or Irritability: 2=Irritable/Anxious Goose Flesh Skin: 0=Smooth Skin COWS Score: 14 S Progress Note (SOAP) Subjective: Anxious, sweating, interrupted sleep, nausea, tremor, rhinorrhea Objective: 07/08/16 14:58 Last Vital Signs Temp Pulse Resp BP Pulse Ox 98.2 F 79 18 150/89 07/08/16 13:10 07/08/16 13:10 07/08/16 13:10 07/08/16 13:10 Laboratory Tests 07/06/16 07/07/16 07/07/16 20:00 06:20 06:20 WBC 7.5 RBC 4.76 Hgb 14.3 Hct 43.8 MCV 91.9 MCHC 32.8 RDW 15.4 Plt Count 237 D MPV 9.3 Sodium 144 Potassium 3.7 Chloride 106 Carbon Dioxide 25 Anion Gap 13 BUN 14 D Creatinine 0.9 D Creat Clearance w eGFR > 60 Random Glucose 111 H D Calcium 8.5 Total Bilirubin 0.7 D AST 49 H D ALT 54 D Alkaline Phosphatase 136 H D Total Protein 7.6 Albumin 3.8 Urine Color Yellow Urine Appearance Clear Urine pH 6.0 Ur Specific [place] 1.025 Urine Protein Negative Urine Glucose (UA) Negative Urine Ketones Trace H Urine Blood Negative Urine Nitrite Negative Urine Bilirubin Negative Urine Urobilinogen Negative Ur Leukocyte Esterase Negative RPR Titer 07/07/16 06:20 WBC RBC Hgb Hct MCV MCHC RDW Plt Count MPV Sodium Potassium Chloride Carbon Dioxide Anion Gap BUN Creatinine Creat Clearance w eGFR Random Glucose Calcium Total Bilirubin AST ALT Alkaline Phosphatase Total Protein Albumin Urine Color Urine Appearance Urine pH Ur Specific [place] Urine Protein Urine Glucose (UA) Urine Ketones Urine Blood Urine Nitrite Urine Bilirubin Urine Urobilinogen Ur Leukocyte Esterase RPR Titer Nonreactive Labs noted Assessment: 07/08/16 14:59 Withdrawal symptoms Plan: Continue detox
[2016-07-08] MEDS: THIAMINE HCL 100 MG TABLET (FP) PO SCH (22:10)
[2016-07-08] MEDS: chlordiazePOXIDE 5 MG CAPSULE PO SCH (22:10)
[2016-07-08] MEDS: CYCLOBENZAPRINE HCL 10 MG TABLET (FP) PO PRN (22:10)
[2016-07-08] MEDS: diphenhydrAMINE HCL 50 MG CAPSULE PO PRN (22:11)
[2016-07-09] MEDS: chlordiazePOXIDE 5 MG CAPSULE PO SCH ×3 (05:24→16:53)
[2016-07-09] MEDS: PRENATAL VITAMINS W/ FOLIC ACID TABLET (FP) PO SCH (10:05)
[2016-07-09] MEDS: METHADONE HCL 5 MG TABLET (FOR DETOX USE ONLY) PO SCH (10:06)
[2016-07-09] MEDS: cloNIDine HCL 0.1 MG TABLET PO SCH ×2 (10:06→22:15)
[2016-07-09] MEDS: NICOTINE 14 MG/24 HOURS TOPICAL PATCH TD SCH (10:09)
--- NOTE | 2016-07-09 11:30 | PN ---
[facility] Progress Note (SOAP) Subjective: Sweating,interrupted sleep,tremors Objective: 07/09/16 11:26 Vital Signs - 8 hr 07/09/16 07/09/16 07/09/16 03:28 06:04 09:42 Temperature 96.5 F L 97.2 F L Pulse Rate 70 70 Respiratory 18 18 18 Rate Blood Pressure 133/77 161/79 Laboratory Last Values WBC 7.5 K/mm3 (4.0-10.0) 07/07/16 06:20 RBC 4.76 M/mm3 (4.00-5.60) 07/07/16 06:20 Hgb 14.3 GM/dL (11.7-16.9) 07/07/16 06:20 Hct 43.8 % (35.4-49) 07/07/16 06:20 MCV 91.9 fl (80-96) 07/07/16 06:20 MCHC 32.8 g/dl (32.0-35.9) 07/07/16 06:20 RDW 15.4 % (11.9-15.9) 07/07/16 06:20 Plt Count 237 K/MM3 (134-434) D 07/07/16 06:20 MPV 9.3 fl (7.5-11.1) 07/07/16 06:20 Sodium 144 mmol/L (136-145) 07/07/16 06:20 Potassium 3.7 mmol/L (3.5-5.1) 07/07/16 06:20 Chloride 106 mmol/L (98-107) 07/07/16 06:20 Carbon Dioxide 25 mmol/L (21-32) 07/07/16 06:20 Anion Gap 13 (8-16) 07/07/16 06:20 BUN 14 mg/dL (7-18) D 07/07/16 06:20 Creatinine 0.9 mg/dL (0.7-1.3) D 07/07/16 06:20 Creat Clearance w eGFR > 60 (>60) 07/07/16 06:20 Random Glucose 111 mg/dL (74-106) H D 07/07/16 06:20 Calcium 8.5 mg/dL (8.5-10.1) 07/07/16 06:20 Total Bilirubin 0.7 mg/dL (0.2-1.0) D 07/07/16 06:20 AST 49 U/L (15-37) H D 07/07/16 06:20 ALT 54 U/L (12-78) D 07/07/16 06:20 Alkaline Phosphatase 136 U/L (45-117) H D 07/07/16 06:20 Total Protein 7.6 g/dl (6.4-8.2) 07/07/16 06:20 Albumin 3.8 g/dl (3.4-5.0) 07/07/16 06:20 Urine Color Yellow 07/06/16 20:00 Urine Appearance Clear 07/06/16 20:00 Urine pH 6.0 (5.0-8.0) 07/06/16 20:00 Ur Specific [place] 1.025 (1.001-1.035) 07/06/16 20:00 Urine Protein Negative (NEGATIVE) 07/06/16 20:00 Urine Glucose (UA) Negative (NEGATIVE) 07/06/16 20:00 Urine Ketones Trace (NEGATIVE) H 07/06/16 20:00 Urine Blood Negative (NEGATIVE) 07/06/16 20:00 Urine Nitrite Negative (NEGATIVE) 07/06/16 20:00 Urine Bilirubin Negative (NEGATIVE) 07/06/16 20:00 Urine Urobilinogen Negative E.U./dl (0.2-1.0) 07/06/16 20:00 Ur Leukocyte Esterase Negative (NEGATIVE) 07/06/16 20:00 RPR Titer Nonreactive (NONREACTIVE) 07/07/16 06:20 labs noted Assessment: 07/09/16 11:30 Withdrawal sx. Plan: Continue detox
[2016-07-09] MEDS: chlordiazePOXIDE HCL 10 MG CAPSULE PO SCH (22:15)
[2016-07-09] MEDS: THIAMINE HCL 100 MG TABLET (FP) PO SCH (22:15)
[2016-07-09] MEDS: diphenhydrAMINE HCL 50 MG CAPSULE PO PRN (22:15)
[2016-07-10] MEDS: chlordiazePOXIDE HCL 10 MG CAPSULE PO SCH (05:20)
[2016-07-10 06:06] VITALS: BP 129/76; PULSE 69; TEMP 96.4
[2016-07-10] MEDS: NICOTINE 14 MG/24 HOURS TOPICAL PATCH TD SCH (09:07)
[2016-07-10] MEDS: PRENATAL VITAMINS W/ FOLIC ACID TABLET (FP) PO SCH (09:07)
[2016-07-10] MEDS: cloNIDine HCL 0.1 MG TABLET PO SCH (09:07)
--- NOTE | 2016-07-10 09:39 | DS ---
[facility] Detox Discharge Summary Admission Date: 07/06/16 Discharge Date: 07/10/16 - History Present History: Alcohol Dependence, Opioid Dependence Pertinent Past History: Hep C - Physical Exam Results Vital Signs: Vital Signs Temperature 96.4 F L 07/10/16 06:05 Pulse Rate 69 07/10/16 06:05 Respiratory Rate 18 07/10/16 06:05 Blood Pressure 129/76 07/10/16 06:05 O2 Sat by Pulse Oximetry (%) Pertinent Admission Physical Exam Findings: Withdrawal sx. Laboratory Last Values WBC 7.5 K/mm3 (4.0-10.0) 07/07/16 06:20 RBC 4.76 M/mm3 (4.00-5.60) 07/07/16 06:20 Hgb 14.3 GM/dL (11.7-16.9) 07/07/16 06:20 Hct 43.8 % (35.4-49) 07/07/16 06:20 MCV 91.9 fl (80-96) 07/07/16 06:20 MCHC 32.8 g/dl (32.0-35.9) 07/07/16 06:20 RDW 15.4 % (11.9-15.9) 07/07/16 06:20 Plt Count 237 K/MM3 (134-434) D 07/07/16 06:20 MPV 9.3 fl (7.5-11.1) 07/07/16 06:20 Sodium 144 mmol/L (136-145) 07/07/16 06:20 Potassium 3.7 mmol/L (3.5-5.1) 07/07/16 06:20 Chloride 106 mmol/L (98-107) 07/07/16 06:20 Carbon Dioxide 25 mmol/L (21-32) 07/07/16 06:20 Anion Gap 13 (8-16) 07/07/16 06:20 BUN 14 mg/dL (7-18) D 07/07/16 06:20 Creatinine 0.9 mg/dL (0.7-1.3) D 07/07/16 06:20 Creat Clearance w eGFR > 60 (>60) 07/07/16 06:20 Random Glucose 111 mg/dL (74-106) H D 07/07/16 06:20 Calcium 8.5 mg/dL (8.5-10.1) 07/07/16 06:20 Total Bilirubin 0.7 mg/dL (0.2-1.0) D 07/07/16 06:20 AST 49 U/L (15-37) H D 07/07/16 06:20 ALT 54 U/L (12-78) D 07/07/16 06:20 Alkaline Phosphatase 136 U/L (45-117) H D 07/07/16 06:20 Total Protein 7.6 g/dl (6.4-8.2) 07/07/16 06:20 Albumin 3.8 g/dl (3.4-5.0) 07/07/16 06:20 Urine Color Yellow 07/06/16 20:00 Urine Appearance Clear 07/06/16 20:00 Urine pH 6.0 (5.0-8.0) 07/06/16 20:00 Ur Specific [place] 1.025 (1.001-1.035) 07/06/16 20:00 Urine Protein Negative (NEGATIVE) 07/06/16 20:00 Urine Glucose (UA) Negative (NEGATIVE) 07/06/16 20:00 Urine Ketones Trace (NEGATIVE) H 07/06/16 20:00 Urine Blood Negative (NEGATIVE) 07/06/16 20:00 Urine Nitrite Negative (NEGATIVE) 07/06/16 20:00 Urine Bilirubin Negative (NEGATIVE) 07/06/16 20:00 Urine Urobilinogen Negative E.U./dl (0.2-1.0) 07/06/16 20:00 Ur Leukocyte Esterase Negative (NEGATIVE) 07/06/16 20:00 RPR Titer Nonreactive (NONREACTIVE) 07/07/16 06:20 labs noted - Treatment Hospital Course: Detox Protocol Followed, Detoxed Safely Patient has Accepted a Rehab Referral to: Pt. refused in-pt rehab,referral to IOP at [facility]. - Medication Discharge Medications: Ambulatory Orders Quetiapine Fumarate [Seroquel -] 50 mg PO HS #30 tablet 06/15/15 - Diagnosis (1) Alcohol dependence with uncomplicated withdrawal Status: Acute (2) Drug-induced mood disorder Status: Acute (3) Insomnia Status: Acute Qualifiers: Insomnia type: alcohol-induced Qualified Code(s): F10.982 - Alcohol use, unspecified with alcohol-induced sleep disorder (4) Nicotine dependence Status: Acute Qualifiers: Nicotine product type: cigarettes Substance use status: in withdrawal Qualified Code(s): F17.213 - Nicotine dependence, cigarettes, with withdrawal (5) Opioid dependence with withdrawal Status: Acute (6) Hepatitis C antibody test positive Status: Chronic - AMA Did Patient Leave Against Medical Advice: No
[2016-07-10] MEDS ORDERED: METHADONE HCL 10 MG TABLET (FOR DETOX USE ONLY) PO SCH (10:00)
[2016-07-10] MEDS ORDERED: METHADONE HCL 5 MG TABLET (FOR DETOX USE ONLY) PO SCH (10:00)
[2016-07-11] MEDS ORDERED: METHADONE HCL 5 MG TABLET (FOR DETOX USE ONLY) PO SCH (06:00)
== END 2016-07-10 09:09 | disposition home or self-care (01) | DRG 897 ==
LOC: YASAS 11:56 → Y3N 18:56
PROVIDERS: ADMIT Internal Medicine; ATTEND Internal Medicine
PROC: HZ2ZZZZ Detoxification Services for Substance Abuse Treatment (ICD-10-PCS; principal; 2016-07-06)
DX: F11.23 Opioid dependence with withdrawal (principal); F10.230 Alcohol dependence with withdrawal, uncomplicated; F10.282 Alcohol dependence with alcohol-induced sleep disorder; F17.210 Nicotine dependence, cigarettes, uncomplicated; F19.24 Other psychoactive substance dependence with psychoactive substance-induced mood disorder; B18.2 Chronic viral hepatitis C
CPT/HCPCS: 36415; 80053; 81003; 85027; 86593; 93005; 93010

== ENCOUNTER 2022-08-17 14:48 | Inpatient (IN) | payer OTHER ==
[2022-08-17 15:44] VITALS: BMI 23.3
[2022-08-17] MEDS ORDERED: IBUPROFEN 400 MG TABLET (FP) PO PRN (16:15)
[2022-08-17] MEDS ORDERED: IBUPROFEN 600 MG TABLET (FP) PO PRN (16:15)
[2022-08-17] MEDS ORDERED: BISMUTH SUBSALICYLATE 524 MG/30 ML PO PRN (16:15)
[2022-08-17] MEDS ORDERED: NALOXONE HCL (KLOXXADO) 8 MG SPRAY NS PRN (16:15)
[2022-08-17] MEDS ORDERED: guaiFENesin 600 MG TABLET.ER (FP) PO PRN (16:15)
[2022-08-17] MEDS ORDERED: ACETAMINOPHEN 325 MG TABLET (FP) PO PRN (16:15)
[2022-08-17] MEDS ORDERED: BENZONATATE 200 MG CAPSULE PO PRN (16:15)
[2022-08-17] MEDS ORDERED: MAGNESIUM HYDROX 2400MG/30ML ORAL SUSPENSION 30 ML CUP PO PRN (16:15)
[2022-08-17] MEDS ORDERED: ONDANSETRON *ODT* 4 MG TABLET SL PRN (16:15)
[2022-08-17] MEDS ORDERED: BENZOCAINE/MENTHOL (CHLORASEPTIC ) LOZENGE MM PRN (16:15)
[2022-08-17] MEDS ORDERED: MAG HYDROX/AL HYDROX/SIMETH 30 ML UNIT-DOSE CUP PO PRN (16:15)
[2022-08-17] MEDS ORDERED: NALOXONE HCL 0.4 MG/ML VIAL IM PRN (16:15)
[2022-08-17] MEDS ORDERED: MELATONIN 5 MG TABLETS PO PRN (16:15)
[2022-08-17] MEDS ORDERED: LOPERAMIDE HCL 2 MG CAPSULE PO PRN (16:15)
[2022-08-17] MEDS ORDERED: P-EPHED 60MG/TRIPROLIDI 2.5MG TABLET PO PRN (16:15)
[2022-08-17] MEDS ORDERED: DICYCLOMINE HCL 10 MG CAPSULE PO PRN (16:15)
[2022-08-17] MEDS ORDERED: POLYETHYLENE GLYCOL (HEALTHYLAX) 3350 17 GM PACKET PO PRN (16:15)
[2022-08-17] MEDS: THIAMINE HCL 100 MG TABLET (FP) PO SCH (21:55)
[2022-08-18] MEDS: PRENATAL VITAMINS W/ FOLIC ACID TABLET (FP) PO SCH (10:17)
[2022-08-18] MEDS ORDERED: methaDONE HCL 10 MG TABLET (FOR DETOX USE ONLY) PO ONE (10:48)
[2022-08-18] MEDS ORDERED: LORazepam 1 MG TABLET PO PRN (10:48)
[2022-08-18 10:49] LABS: HEMATOCRIT 40.9 % (35.4-49); HEMOGLOBIN 14.2 GM/dL (11.7-16.9); MCH 32.7 pg (25.7-33.7); MCHC 34.7 g/dl (32.0-35.9); MEAN PLT VOLUME 9.8 fl (7.5-11.1); PLATELET COUNT 158 10^3/uL (134-434); RBC 4.35 M/mm3 (4.00-5.60); RDW 14.2 % (11.9-15.9); WHITE BLOOD COUNT 4.5 K/mm3 (4.0-10.0)
[2022-08-18 10:58] LABS: ALBUMIN 3.1 g/dl (3.4-5.0); BLOOD UREA NITROGEN 15.8 mg/dL (7-18); CALCIUM 8.8 mg/dL (8.5-10.1)
[2022-08-18 11:00] LABS: BILIRUBIN,TOTAL 0.8 mg/dL (0.2-1); TOT PROT 6.5 g/dl (6.4-8.2)
[2022-08-18 11:02] LABS: CREATININE 0.6 mg/dL (0.55-1.3)
[2022-08-18] MEDS: LORazepam 2 MG TABLET PO SCH ×3 (11:14→22:51)
[2022-08-18] MEDS: cloNIDine HCL 0.1 MG TABLET PO PRN (13:15)
[2022-08-18] MEDS ORDERED: cloNIDine HCL 0.1 MG TABLET PO ONE (16:39)
[2022-08-18] MEDS: THIAMINE HCL 100 MG TABLET (FP) PO SCH (22:51)
[2022-08-19] MEDS: LORazepam 2 MG TABLET PO SCH ×4 (05:41→23:07)
[2022-08-19] MEDS: PRENATAL VITAMINS W/ FOLIC ACID TABLET (FP) PO SCH (11:37)
[2022-08-19] MEDS ORDERED: methaDONE HCL 10 MG TABLET (FOR DETOX USE ONLY) ONE (11:39)
[2022-08-19] MEDS ORDERED: LACTULOSE 20 GM/30 ML UDC (FOR ORAL USE ONLY) PO ONE (13:24)
[2022-08-19] MEDS: cloNIDine HCL 0.1 MG TABLET PO PRN (13:37)
[2022-08-19 21:48] VITALS: BP 190/103; PULSE 67; RESP 18; TEMP 97.1
[2022-08-19] MEDS: THIAMINE HCL 100 MG TABLET (FP) PO SCH (22:36)
[2022-08-20] MEDS ORDERED: LORazepam 1 MG TABLET PO SCH (05:00)
[2022-08-20] MEDS ORDERED: methaDONE HCL 10 MG TABLET (FOR DETOX USE ONLY) PO ONE (10:00)
[2022-08-21] MEDS ORDERED: LORazepam 0.5 MG TABLET PO PRN
[2022-08-21] MEDS ORDERED: LORazepam 0.5 MG TABLET PO SCH (05:00)
[2022-08-22] MEDS ORDERED: LORazepam 0.5 MG TABLET PO ONE (05:00)
[2022-08-22] MEDS ORDERED: methaDONE HCL 10 MG TABLET (FOR DETOX USE ONLY) PO ONE (10:00)
== END 2022-08-20 04:15 | disposition short-term general hospital (02) | DRG 897 ==
LOC: YASAS 14:48 → Y3N 18:36
PROVIDERS: ADMIT Allergy & Immunology; ATTEND Surgery
PROC: HZ2ZZZZ Detoxification Services for Substance Abuse Treatment (ICD-10-PCS; principal; 2022-08-17)
DX: F11.23 Opioid dependence with withdrawal (principal); F19.282 Other psychoactive substance dependence with psychoactive substance-induced sleep disorder; F10.230 Alcohol dependence with withdrawal, uncomplicated; F17.210 Nicotine dependence, cigarettes, uncomplicated; F19.24 Other psychoactive substance dependence with psychoactive substance-induced mood disorder; I10 Essential (primary) hypertension; R41.82 Altered mental status, unspecified; W01.0XXA Fall on same level from slipping, tripping and stumbling without subsequent striking against object, initial encounter; Y92.230 Patient room in hospital as the place of occurrence of the external cause
CPT/HCPCS: 36415; 80053; 85027; 86593; 86780; 87811; C9803-CS; U0003; U0005

== ENCOUNTER 2022-08-19 21:47 | Inpatient (IN) | payer OTHER ==
[2022-08-19] MEDS ORDERED: HALOPERIDOL DECANOATE 500 MG/5ML MDV IM ONE (22:29)
[2022-08-19] MEDS ORDERED: LORazepam 2 MG/ML SDV VIAL IVPUSH ONE (22:29)
[2022-08-19] MEDS ORDERED: HALOPERIDOL LACTATE 5 MG/ML IM ONE (22:31)
[2022-08-19 23:20] LABS: BASO % 0.3 % (0-2.0); EOS % 5.4 % (0-4.5); HEMATOCRIT 40.8 % (35.4-49); HEMOGLOBIN 13.9 GM/dL (11.7-16.9); LYMPH % 15.4 % (8-40); MCH 31.6 pg (25.7-33.7); MCHC 34.1 g/dl (32.0-35.9); MEAN CELL VOLUME 92.8 fl (80-96); MEAN PLT VOLUME 7.7 fl (7.5-11.1); MONO % 8.6 % (3.8-10.2); NEUT % 70.3 % (42.8-82.8); PLATELET COUNT 171 10^3/uL (134-434); RDW 13.8 % (11.9-15.9); WHITE BLOOD COUNT 6.2 K/mm3 (4.0-10.0)
[2022-08-19 23:27] LABS: INR 1.05 (0.83-1.09); PROTHROMBIN TIME (PATIENT) 12.2 SEC (9.7-13.0)
[2022-08-19 23:30] LABS: ACTIVATED PTT 30.6 SECONDS (25.2-36.5)
[2022-08-19 23:48] LABS: CHLORIDE 106 mmol/L (98-107); SODIUM 140 mmol/L (136-145)
[2022-08-19 23:51] LABS: CALCIUM 8.9 mg/dL (8.5-10.1)
[2022-08-19 23:52] LABS: ALBUMIN 3.2 g/dl (3.4-5.0); ANION GAP 5 MMOL/L (8-16); BLOOD UREA NITROGEN 12.5 mg/dL (7-18); CO2 30 mmol/L (21-32); GLUCOSE,RANDOM 89 mg/dL (74-106)
[2022-08-19 23:55] LABS: CREATININE 0.7 mg/dL (0.55-1.3); SGOT/AST 28 U/L (15-37); SGPT/ALT 21 U/L (13-61)
[2022-08-19 23:56] LABS: BILIRUBIN,TOTAL 0.5 mg/dL (0.2-1)
[2022-08-19 23:57] LABS: TOT PROT 6.7 g/dl (6.4-8.2)
[2022-08-19 23:58] LABS: ALK PHOS 99 U/L (45-117)
[2022-08-20] MEDS ORDERED: cloNIDine HCL 0.1 MG TABLET PO PRN (02:17)
[2022-08-20 02:39] LABS: MAGNESIUM 1.8 mg/dL (1.8-2.4)
[2022-08-20 02:43] LABS: PHOSPHOROUS 3.7 mg/dL (2.5-4.9)
[2022-08-20] MEDS ORDERED: FOLIC ACID INJECTION - 1 MG, THIAMINE HCL 100 MG, MULTIVIT INJECTION ADULT 10 ML in SOD... IVPB ONE (04:00)
[2022-08-20 06:44] LABS: ALBUMIN 3.1 g/dl (3.4-5.0); BLOOD UREA NITROGEN 11.3 mg/dL (7-18); CALCIUM 8.9 mg/dL (8.5-10.1); MAGNESIUM 1.8 mg/dL (1.8-2.4)
[2022-08-20 06:47] LABS: CREATININE 0.6 mg/dL (0.55-1.3); PHOSPHOROUS 3.5 mg/dL (2.5-4.9)
[2022-08-20 06:49] LABS: BILIRUBIN,TOTAL 0.6 mg/dL (0.2-1); TOT PROT 6.5 g/dl (6.4-8.2)
[2022-08-20 06:52] LABS: BASO % 0.5 % (0-2.0); EOS % 6.8 % (0-4.5); HEMATOCRIT 39.7 % (35.4-49); LYMPH % 22.8 % (8-40); MCH 32.5 pg (25.7-33.7); MCHC 35.3 g/dl (32.0-35.9); MEAN CELL VOLUME 91.9 fl (80-96); MEAN PLT VOLUME 8.4 fl (7.5-11.1); MONO % 10.1 % (3.8-10.2); NEUT % 59.8 % (42.8-82.8); PLATELET COUNT 182 10^3/uL (134-434); RBC 4.32 M/mm3 (4.00-5.60); RDW 14.2 % (11.9-15.9); WHITE BLOOD COUNT 5.4 K/mm3 (4.0-10.0)
[2022-08-20] MEDS: THIAMINE HCL 200 MG/2 ML VIAL IVPB SCH ×2 (06:56→16:59)
[2022-08-20] MEDS ORDERED: LORazepam 0.5 MG TABLET ONE ×3 (07:02→17:12)
[2022-08-20] MEDS ORDERED: THIAMINE HCL 200 MG/2 ML VIAL ONE (07:02)
[2022-08-20] MEDS: LORazepam 0.5 MG TABLET PO SCH ×4 (07:07→23:57)
[2022-08-20] MEDS ORDERED: methaDONE HCL 10 MG TABLET ONE (09:54)
[2022-08-20] MEDS ORDERED: LOSARTAN POTASSIUM 50 MG TABLET ONE (09:54)
[2022-08-20] MEDS ORDERED: ENOXAPARIN NA (PORCINE) 40 MG/0.4 ML DISP.SYRIN SQ ONE (09:55)
[2022-08-20] MEDS: LOSARTAN POTASSIUM 50 MG TABLET PO SCH (10:00)
[2022-08-20] MEDS: FOLIC ACID 1 MG TABLET (FP) PO SCH (10:00)
[2022-08-20] MEDS ORDERED: methaDONE HCL 10 MG TABLET (FOR DETOX USE ONLY) PO ONE (10:00)
[2022-08-20] MEDS: NICOTINE 14 MG/24 HOURS TOPICAL PATCH TD SCH (10:05)
[2022-08-20] MEDS: ENOXAPARIN NA (PORCINE) 40 MG/0.4 ML DISP.SYRIN SQ SCH (10:05)
[2022-08-20] MEDS ORDERED: HALOPERIDOL LACTATE 5 MG/ML IM ONE ×2 (13:02→13:03)
[2022-08-20] MEDS: QUEtiapine FUMARATE 50 MG TABLET PO SCH (23:57)
[2022-08-21] MEDS ORDERED: LORazepam 0.5 MG TABLET PO ONE (05:00)
[2022-08-21] MEDS: THIAMINE HCL 200 MG/2 ML VIAL IVPB SCH ×4 (06:13→21:23)
[2022-08-21 07:55] VITALS: BMI 21.2
[2022-08-21 08:31] LABS: PH,URINE 8.5 (5.0-8.0); URINE APPEARANCE CLEAR; URINE BILIRUBIN NEGATIVE (NEGATIVE); URINE COLOR YELLOW; URINE GLUCOSE (UA) NEGATIVE (NEGATIVE); URINE KETONE NEGATIVE (NEGATIVE); URINE LEUK ESTERASE NEGATIVE (NEGATIVE); URINE NITRITE NEGATIVE (NEGATIVE); URINE PROTEIN NEGATIVE (NEGATIVE)
[2022-08-21 09:26] LABS: CALCIUM 8.7 mg/dL (8.5-10.1)
[2022-08-21 09:27] LABS: ALBUMIN 3.2 g/dl (3.4-5.0); BLOOD UREA NITROGEN 10.4 mg/dL (7-18)
[2022-08-21 09:30] LABS: CREATININE 0.8 mg/dL (0.55-1.3)
[2022-08-21 09:32] LABS: BILIRUBIN,TOTAL 0.9 mg/dL (0.2-1); TOT PROT 6.8 g/dl (6.4-8.2)
[2022-08-21] MEDS: FOLIC ACID 1 MG TABLET (FP) PO SCH (09:32)
[2022-08-21] MEDS: ENOXAPARIN NA (PORCINE) 40 MG/0.4 ML DISP.SYRIN SQ SCH (09:33)
[2022-08-21] MEDS: LOSARTAN POTASSIUM 50 MG TABLET PO SCH (09:33)
[2022-08-21] MEDS: NICOTINE 14 MG/24 HOURS TOPICAL PATCH TD SCH (09:33)
[2022-08-21] MEDS: LORazepam 0.5 MG TABLET PO PRN ×2 (11:32→17:51)
[2022-08-21] MEDS ORDERED: DEXTROSE 50%-WATER 25 GM/50 ML DISP.SYRIN IVPUSH PRN (16:52)
[2022-08-21] MEDS ORDERED: ACETAMINOPHEN 325 MG TABLET (FP) PO PRN (17:57)
[2022-08-21] MEDS: QUEtiapine FUMARATE 50 MG TABLET PO SCH (21:23)
[2022-08-22 08:58] LABS: BASO % 0.4 % (0-2.0); EOS % 4.9 % (0-4.5); HEMATOCRIT 43.6 % (35.4-49); HEMOGLOBIN 15.1 GM/dL (11.7-16.9); LYMPH % 24.3 % (8-40); MCHC 34.6 g/dl (32.0-35.9); MEAN CELL VOLUME 92.7 fl (80-96); MEAN PLT VOLUME 8.2 fl (7.5-11.1); MONO % 9.6 % (3.8-10.2); NEUT % 60.8 % (42.8-82.8); PLATELET COUNT 191 10^3/uL (134-434); RDW 14.1 % (11.9-15.9); WHITE BLOOD COUNT 7.1 K/mm3 (4.0-10.0)
[2022-08-22 09:20] VITALS: BP 154/100; PULSE 100; RESP 20; TEMP 97.4
[2022-08-22] MEDS: ENOXAPARIN NA (PORCINE) 40 MG/0.4 ML DISP.SYRIN SQ SCH (09:21)
[2022-08-22] MEDS: NICOTINE 14 MG/24 HOURS TOPICAL PATCH TD SCH (09:21)
[2022-08-22] MEDS: LOSARTAN POTASSIUM 50 MG TABLET PO SCH (09:21)
[2022-08-22] MEDS: FOLIC ACID 1 MG TABLET (FP) PO SCH (09:21)
[2022-08-22 09:39] LABS: ALBUMIN 3.2 g/dl (3.4-5.0); CALCIUM 9.3 mg/dL (8.5-10.1)
[2022-08-22 09:40] LABS: BLOOD UREA NITROGEN 11.5 mg/dL (7-18)
[2022-08-22 09:42] LABS: CREATININE 0.8 mg/dL (0.55-1.3)
[2022-08-22 09:43] LABS: PHOSPHOROUS 3.7 mg/dL (2.5-4.9)
[2022-08-22 09:44] LABS: BILIRUBIN,TOTAL 0.8 mg/dL (0.2-1); TOT PROT 6.9 g/dl (6.4-8.2)
[2022-08-22] MEDS ORDERED: methaDONE HCL 10 MG TABLET PO ONE (10:00)
[2022-08-22] MEDS ORDERED: MULTIVITAMINS (DAILY MVI) TABLET (FP) PO SCH (10:00)
[2022-08-23] MEDS ORDERED: THIAMINE HCL 200 MG/2 ML VIAL IVPB SCH (10:00)
== END 2022-08-22 12:54 | disposition left against medical advice (07) | DRG 894 ==
LOC: JER 21:47 → JERBED 23:55 → J7W 08-20 18:25
PROVIDERS: ADMIT Internal Medicine
PROC: HZ2ZZZZ Detoxification Services for Substance Abuse Treatment (ICD-10-PCS; principal; 2022-08-19)
DX: F11.23 Opioid dependence with withdrawal (principal); E51.2 Wernicke's encephalopathy; F10.239 Alcohol dependence with withdrawal, unspecified; F10.231 Alcohol dependence with withdrawal delirium; I10 Essential (primary) hypertension; A53.0 Latent syphilis, unspecified as early or late
CPT/HCPCS: 0241U-QW; 36415; 70450-TC; 71045-TC-FY; 72125-TC; 80048; 80053; 80307; 81003; 82140; 82746; 83735; 84100; 84425; 85025; 85610; 85730; 86850; 86900; 86901; 93005; 93010; 99285-25

== ENCOUNTER 2022-12-18 11:44 | Inpatient (IN) | payer OTHER ==
[2022-12-18 12:51] VITALS: BMI 22.9
[2022-12-18] MEDS ORDERED: IBUPROFEN 400 MG TABLET (FP) PO PRN (15:12)
[2022-12-18] MEDS ORDERED: MAGNESIUM HYDROX 2400MG/30ML ORAL SUSPENSION 30 ML CUP PO PRN (15:12)
[2022-12-18] MEDS ORDERED: IBUPROFEN 600 MG TABLET (FP) PO PRN (15:12)
[2022-12-18] MEDS ORDERED: BENZOCAINE/MENTHOL (CHLORASEPTIC ) LOZENGE MM PRN (15:12)
[2022-12-18] MEDS ORDERED: METHOCARBAMOL 500 MG TABLET PO PRN (15:12)
[2022-12-18] MEDS ORDERED: DICYCLOMINE HCL 10 MG CAPSULE PO PRN (15:12)
[2022-12-18] MEDS ORDERED: NALOXONE HCL (KLOXXADO) 8 MG SPRAY NS PRN (15:12)
[2022-12-18] MEDS ORDERED: BENZONATATE 200 MG CAPSULE PO PRN (15:12)
[2022-12-18] MEDS ORDERED: POLYETHYLENE GLYCOL (HEALTHYLAX) 3350 17 GM PACKET PO PRN (15:12)
[2022-12-18] MEDS ORDERED: guaiFENesin 600 MG TABLET.ER (FP) PO PRN (15:12)
[2022-12-18] MEDS ORDERED: BISMUTH SUBSALICYLATE 262 MG/15 ML BTL PO PRN (15:12)
[2022-12-18] MEDS ORDERED: LOPERAMIDE HCL 2 MG CAPSULE PO PRN (15:12)
[2022-12-18] MEDS ORDERED: NALOXONE HCL 0.4 MG/ML VIAL IM PRN (15:12)
[2022-12-18] MEDS ORDERED: ACETAMINOPHEN 325 MG TABLET (FP) PO PRN (15:12)
[2022-12-18] MEDS ORDERED: NICOTINE POLACRILEX 2 MG GUM BUC PRN (15:12)
[2022-12-18] MEDS ORDERED: MAG HYDROX/AL HYDROX/SIMETH 30 ML UNIT-DOSE CUP PO PRN (15:12)
[2022-12-18] MEDS ORDERED: ONDANSETRON *ODT* 4 MG TABLET SL PRN (15:12)
[2022-12-18] MEDS ORDERED: cloNIDine HCL 0.1 MG TABLET PO PRN (17:29)
[2022-12-18] MEDS ORDERED: THIAMINE HCL 100 MG TABLET (FP) PO SCH (22:00)
[2022-12-18] MEDS ORDERED: MELATONIN 5 MG TABLETS PO SCH (22:00)
[2022-12-18 22:48] VITALS: TEMP 97.7
[2022-12-19 07:08] VITALS: BP 174/92; PULSE 65; RESP 18
[2022-12-19] MEDS ORDERED: methaDONE 40 MG, methaDONE 20 MG PO SCH (07:15)
[2022-12-19] MEDS ORDERED: methaDONE HCL 10 MG TABLET PO SCH (07:15)
[2022-12-19] MEDS ORDERED: NICOTINE 14 MG/24 HOURS TOPICAL PATCH TD SCH (10:00)
[2022-12-19] MEDS ORDERED: PRENATAL VITAMINS W/ FOLIC ACID TABLET (FP) PO SCH (10:00)
[2022-12-19] MEDS ORDERED: PATIENT'S OWN MEDICATION (NON-FORMULARY) (Losartan Potassium [Losartan Potassium] 100 MG T PO SCH (11:00)
[2022-12-20] MEDS ORDERED: methaDONE HCL 10 MG TABLET PO SCH (06:00)
== END 2022-12-19 07:39 | disposition left against medical advice (07) | DRG 894 ==
LOC: YASAS 11:44 → Y6N 16:03
PROVIDERS: ADMIT Allergy & Immunology; ATTEND Allergy & Immunology
PROC: HZ2ZZZZ Detoxification Services for Substance Abuse Treatment (ICD-10-PCS; principal; 2022-12-18)
DX: F10.20 Alcohol dependence, uncomplicated (principal); F11.20 Opioid dependence, uncomplicated; F14.20 Cocaine dependence, uncomplicated; F17.213 Nicotine dependence, cigarettes, with withdrawal; I10 Essential (primary) hypertension; R76.8 Other specified abnormal immunological findings in serum
CPT/HCPCS: 87635; 87811